=== PATIENT | male | born 1960 | race Caucasian/White ===

== ENCOUNTER 2018-11-02 11:29 | Emergency (ER) | payer SELFPAY ==
[2018-11-02] MEDS ORDERED: Ketorolac Tromethamine 60 MG/2 ML VIAL ONE (12:13)
--- NOTE | 2018-11-02 12:28 | RAD ---
XR Hip Lt 2-3 View INDICATION: Left hip pain COMPARISON: None FINDINGS: Bones: No acute osseous abnormality. Bone mineralization appears within normal limits. Hip joint: Mild degenerative change of the left hip. SI joints and symphysis pubis: Radiographically normal. Intrapelvic contents: There are scattered phleboliths Surrounding soft tissues: Radiographically normal. IMPRESSION: 1. No acute osseous abnormality.
== END 2018-11-02 12:55 | disposition home or self-care (01) ==
LOC: ERS 11:29
DX: S76.012A Strain of muscle, fascia and tendon of left hip, initial encounter (principal); F17.210 Nicotine dependence, cigarettes, uncomplicated; X58.XXXA Exposure to other specified factors, initial encounter
CPT/HCPCS: 96372; J1885